=== PATIENT | male | born 1950 | race Caucasian/White ===

== ENCOUNTER 2020-01-19 18:33 | IRF | payer MEDICARE, OTHER, SELFPAY ==
--- NOTE | ~2020-01-19 | XR_ITS ---
XR chest 1V portable DATE: 01/19/2020 20:03 INDICATION: New admission with intravenous medications TECHNIQUE: Portable AP chest on 01/19/2020 2002 hours COMPARISON: None FINDINGS: Right upper extremity PIC catheter tip overlies the upper right atrium. Heart size is within normal limits. Status post sternotomy and cardiac valve replacement. There is mild elevation of the right diaphragm. No pulmonary infiltrate or consolidation, pulmonary vascular congestion or pleural effusion or pneumothorax. There is gaseous distention of bowel in the upper abdomen. IMPRESSION: No active cardiopulmonary disease Reviewed, dictated and finalized at location A. [facility] [facility]
[2020-01-19 18:25] VITALS: BP 129/65; PULSE 70; RESP 18; TEMP 36.1; O2SAT 98; BMI 29.9
--- NOTE | 2020-01-19 18:32 | ADMGEN ---
This patient, Abraham Gonzalez, was admitted to [facility] Room 230-02. Patient/family oriented to hospital policies and general routines including ID bracelet, bed and alarms, visiting hours, pain management, procedures, bathroom and other care routines, personal items, smoking policy, room service/diet, and visiting hours. Information on how to activate the Rapid Response Team has been discussed. Patient/Family are encouraged to report perceived risks to care and to ask questions if they do not understand what they are told or what they should do.
[2020-01-19 21:13] VITALS: BP 127/58; PULSE 73; RESP 18; TEMP 36.5; O2SAT 99
[2020-01-19] MEDS: DOXYCYCLINE HYCLATE 100 MG TABLET PO (22:11)
[2020-01-19] MEDS: ATORVASTATIN 40 MG TABLET 80 MG PO (22:12)
[2020-01-19] MEDS: MELATONIN 3 MG TABLET 6 MG PO (22:12)
[2020-01-19] MEDS: APIXABAN 5 MG TABLET PO (22:12)
[2020-01-19 22:13] VITALS: PULSE 74
[2020-01-19] MEDS: carvediloL 3.125 MG TABLET PO (22:13)
[2020-01-19] MEDS: hydrALAZINE HCL 50 MG TABLET PO (22:15)
[2020-01-19] MEDS: PANTOPRAZOLE 40 MG TABLET PO (22:18)
[2020-01-19] MEDS: MICONAZOLE NITRATE 2% CREAM 30 GM TUBE 1 APPLIC TOPICAL (22:19)
[2020-01-20] VITALS (7 sets, daily range): BP systolic 106–116; BP diastolic 56–62; PULSE 70–78; RESP 18–20; TEMP 36.3–37.1; O2SAT 98–100
[2020-01-20] MEDS: CENTRAL LINE FLUSH 10 ML IV PUSH ×4 (05:48→20:53)
[2020-01-20] MEDS: MICONAZOLE NITRATE 2% CREAM 30 GM TUBE 1 APPLIC TOPICAL ×4 (05:48→20:53)
[2020-01-20 06:45] LABS: Basophils Absolute Auto 0.1 K/mm3 (0.0-0.1); Eosinophils Absolute Auto 0.6 K/mm3 (0-0.3); Eosinophils Percent Auto 6.3 % (0-4.4); Hematocrit 24.2 % (42.0-52.0); Hemoglobin 7.7 g/dL (14.0-18.0); Immature Granulocyte Absolute 0.05 K/mm3 (0.00-0.031); Immature Granulocyte Percent A 0.5 % (0-0.5); Lymphocytes Absolute Auto 1.51 K/mm3 (0.9-3.2); Mean Corpuscular HGB Conc 31.8 g/dl (32-36); Mean Corpuscular Hemoglobin 27.6 pg (26-34); Mean Corpuscular Volume 86.7 fl (80-100); Mean Platelet Volume 12.2 fl (7.4-10.4); Monocytes Absolute Auto 0.8 K/mm3 (0.1-0.6); Monocytes Percent Auto 8.4 % (2.6-8.5); Neutrophils Absolute Auto 6.4 K/mm3 (1.3-6.7); Neutrophils Percent Auto 67.8 % (45.5-73.1); Platelet Count Result 143 k/mm3 (150-375); Red Blood Count 2.79 M/mm3 (4.6-6.20); Red Cell Distribution Width 15.5 % (11.5-14.5); White Blood Count 9.4 K/mm3 (4.5-10.0)
[2020-01-20 06:57] LABS: Anion Gap 4 mmol/L (8-16); Blood Urea Nitrogen 12 mg/dL (9-20); Calcium 8.2 mg/dL (8.4-10.2); Carbon Dioxide 28 mmol/L (22-30); Chloride 109 mmol/L (98-107); Estimated CRCL calculation 56 ml/min; Estimated Glomerular Filt Rate 60; Glucose 97 mg/dL (75-110); Potassium 3.2 mmol/L (3.4-5.0); Sodium 141 mmol/L (137-145)
[2020-01-20] MEDS: AMIODARONE HCL 200 MG TABLET 400 MG BY MOUTH (10:42)
[2020-01-20] MEDS: allopurinoL 100 MG TABLET PO (10:42)
[2020-01-20] MEDS: DOXYCYCLINE HYCLATE 100 MG TABLET PO ×2 (10:43→20:53)
[2020-01-20] MEDS: ASPIRIN 81 MG CHEWABLE TABLET PO (10:43)
[2020-01-20] MEDS: carvediloL 3.125 MG TABLET PO ×2 (10:43→20:52)
[2020-01-20] MEDS: APIXABAN 5 MG TABLET PO ×2 (10:43→17:50)
[2020-01-20] MEDS: POTASSIUM CHLORIDE 20 MEQ TABLET.ER PO (10:43)
[2020-01-20] MEDS: MULTIVITAMINS THERAPEUTIC TAB (*BKC) 1 TABLET PO (10:44)
--- NOTE | 2020-01-20 12:31 | WPDREHABHP ---
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 The patient is a 69 years old right-handed male with past medical history of bioprosthetic aortic valve, thoracic aortic aneurysm repair, atrial fibrillation, and hypertension presented to [facility] with a 3 week history of shortness of breath on exertion despite home diuretics. He developed acute kidney injury and his repeat echocardiogram both transthoracic and transesophageal were notable for new onset aortic insufficiency with vegetation on his bioprosthetic valve, indicated above endocarditis. The patient underwent a NICOLAS and remained intubated following the procedure. He was transferred to [facility] for further evaluation and management. Cardiothoracic surgery was consulted and the patient underwent a TAVR with DCCV on December 11, 2019. Infectious Disease was consulted and recommended 6 weeks of antibiotic therapy. Extubation was attempted on December 18, 2019 but the patient had to be reintubated on December 19, 2019 for respiratory distress in the setting of epistaxis. He underwent tracheostomy placement on December 24, 2019. During the hospitalization there was a concern for pulmonic valve vegetation as well. He continued on vancomycin, ceftriaxone, and doxycycline until January 13, 2020. He will require chronic suppressive therapy with doxycycline 100 mg p.o. b.i.d. indefinitely. Repeat NICOLAS on December 18, 2019 showed no vegetations on the pulmonic valve. A PEG was placed for nutrition on December 24, 2019. His hospitalization was complicated by atrial fibrillation for which he was started on amiodarone. Given his need for anticoagulation he was placed on aspirin and Eliquis. Patient was transferred to [facility] on December 29, 2019 for further care. Pulmonology was consulted and began tracheostomy weaning, patient was since been decannulated he is currently on 2L per nasal cannula. Cardiology was consulted and the patient was maintained on beta blockers and Eliquis. General surgery was consulted for G-tube removal as patient's diet has been advanced to a regular consistency diet. G-tube was removed on January 05, 2020. He developed left ankle and right foot pain that was determined to be acute gout flare for which he was treated with colchicine. He will remain on Eliquis and aspirin for DVT prophylaxis COVID: the patient has not traveled outside the [place] or had contact with someone who is ill that has traveled outside the [place] in the past 21 days. The patient has not traveled to an area of the [place] that is experiencing known transmission of the Coronavirus and has not had close personal contact with anyone that has. The patient does not have a fever. The patient is not experiencing lower respiratory illness symptoms. Therapy was initiated at the acute care facility and the patient transferred to us from [facility] on January 19, 2020 FALLS OR SURGERIES: the patient has had major surgery in the last 100 days. The patient has had no falls in the past year. The patient has had no falls with the injury in the past year PAST MEDICAL HISTORY: atrial fibrillation, bypass static aortic valve, hypertension, hyperlipidemia, gout, osteoarthritis, and coronary artery disease. PAST SURGICAL HISTORY: By prosthetic aortic valve, thoracic aortic aneurysm repair, TAVR, tracheostomy, G-tube insertion, cholecystectomy, partial hip arthroplasty, and vasectomy. SOCIAL HISTORY: The patient lives with his and daughter in a 1 level home with 1 step to enter. Patient was completely independent previously wit
[2020-01-20] MEDS: hydrALAZINE HCL 50 MG TABLET PO ×2 (15:30→20:53)
[2020-01-20] MEDS: ATORVASTATIN 40 MG TABLET 80 MG PO (20:52)
[2020-01-20] MEDS: PANTOPRAZOLE 40 MG TABLET PO (20:53)
[2020-01-20] MEDS: MELATONIN 3 MG TABLET 6 MG PO (20:53)
[2020-01-21] VITALS (7 sets, daily range): BP systolic 106–119; BP diastolic 54–65; PULSE 71–77; RESP 13–20; TEMP 36.9–37.1; O2SAT 95–99
[2020-01-21] MEDS: hydrALAZINE HCL 50 MG TABLET PO ×3 (05:41→20:39)
[2020-01-21] MEDS: allopurinoL 100 MG TABLET PO (09:12)
[2020-01-21] MEDS: AMIODARONE HCL 200 MG TABLET 400 MG BY MOUTH (09:12)
[2020-01-21] MEDS: carvediloL 3.125 MG TABLET PO ×2 (09:13→20:39)
[2020-01-21] MEDS: ASPIRIN 81 MG CHEWABLE TABLET PO (09:13)
[2020-01-21] MEDS: POTASSIUM CHLORIDE 20 MEQ TABLET.ER PO (09:13)
[2020-01-21] MEDS: DOXYCYCLINE HYCLATE 100 MG TABLET PO ×2 (09:13→20:39)
[2020-01-21] MEDS: MULTIVITAMINS THERAPEUTIC TAB (*BKC) 1 TABLET PO (09:14)
[2020-01-21] MEDS: APIXABAN 5 MG TABLET PO ×2 (09:14→17:47)
--- NOTE | 2020-01-21 12:06 | WPDNEURORHBP ---
Subjective Date/time seen: 01/21/20 12:06 69 years old with critical illness myopathy and multiple comorbid condition as outlined before has no specific complaints except that he feels hot at times at night it was cold Review of Systems Review of Systems: All systems reviewed & are unremarkable except as noted in HPI and below Functional Status Ambulation Ability Ability to Ambulate 10 Feet: Minimum Assistance X 1 Ambulation Assistive Devices: Walker, Wheeled Transfers Ability Ability to Transfer In/Out of Chair: Minimum Assistance X 1 Exam Narrative: Exam Narrative: remains awake alert cooperative in no obvious acute distress heart regular with murmur lungs clear no crepitation abdomen is soft no organomegaly neuro examination unchanged Objective Data Vital Signs Vital Signs: Vital Signs - 24 hr 01/20/20 14:00 01/20/20 20:00 01/20/20 20:52 Temperature 36.6 C Pulse Rate 75 78 78 Respiratory Rate 20 18 Blood Pressure 115/62 Pulse Oximetry 100 100 01/20/20 21:20 01/21/20 06:00 01/21/20 09:12 Temperature 37.1 C 36.9 C Pulse Rate 78 72 72 Respiratory Rate 18 18 Blood Pressure 116/60 117/65 Pulse Oximetry 100 99 01/21/20 09:13 Temperature Pulse Rate 72 Respiratory Rate Blood Pressure Pulse Oximetry Intake/Output Intake/Output: Intake & Output 01/18/20 01/19/20 01/20/20 01/21/20 23:59 23:59 23:59 23:59 Intake Total 720 Balance 720 Meds/Results Medications: Active Medications Generic Name Dose Route Start Last Admin Trade Name Freq PRN Reason Stop Dose Admin Acetaminophen 650 mg 01/19/20 19:42 Acetaminophen 325 Mg Tablet PO Q4H PRN Pain (Scale Score 1-3) Allopurinol 100 mg 01/20/20 08:00 01/21/20 09:12 Allopurinol 100 Mg Tablet PO 100 mg DAILY@0800 [facility] Administration Alteplase, Recombinant 2 mg 01/20/20 06:35 Alteplase 2 Mg Vial (Cathflo) IV PUSH ONCE PRN Line Occlusion Amiodarone HCl 400 mg 01/20/20 08:00 01/21/20 09:12 Amiodarone Hcl 200 Mg Tablet BY MOUTH 400 mg DAILY@0800 [facility] Administration Apixaban 5 mg 01/19/20 21:20 01/21/20 09:14 Apixaban 5 Mg Tablet PO 5 mg BID NAE Administration Aspirin 81 mg 01/20/20 08:00 01/21/20 09:13 Aspirin 81 Mg Chewable Tablet PO 81 mg DAILY@0800 NAE Administration Atorvastatin Calcium 80 mg 01/19/20 21:20 01/20/20 20:52 Atorvastatin 40 Mg Tablet PO 80 mg HS NAE Administration Calcium Carbonate 200 mg 01/19/20 19:42 Calcium Carbonate (Tums) 500 Mg (200 Mg Elemental) PO QID PRN Indigestion Carvedilol 3.125 mg 01/19/20 21:25 01/21/20 09:13 Carvedilol 3.125 Mg Tablet PO 3.125 mg Q12HR NAE Administration Doxycycline Hyclate 100 mg 01/19/20 21:25 01/21/20 09:13 Doxycycline Hyclate 100 Mg Tablet PO 100 mg Q12HR NAE Administration Hydralazine HCl 50 mg 01/19/20 22:00 01/21/20 05:41 Hydralazine Hcl 50 Mg Tablet PO 50 mg Q8HR NAE Administration Ceftriaxone Sodium 2 gm in 100 mls @ 200 mls/hr 01/21/20 13:00 Rocephin 2 Gm/D5w 100 Ml IVPB 01/21/20 13:29 ONCE ONE Loperamide HCl 2 mg 01/19/20 19:42 Loperamide Hcl 2 Mg Capsule PO Q4H PRN Diarrhea Melatonin 6 mg 01/19/20 21:25 01/20/20 20:53 Melatonin 3 Mg Tablet PO 6 mg HS NAE Administration Miconazole Nitrate 1 applic 01/19/20 22:00 01/20/20 20:53 Miconazole Nitrate 2% Cream 30 Gm Tube TOPICAL 1 applic Q8HR NAE Administration Multivitamins Therapeutic 1 tablet 01/20/20 09:00 01/21/20 09:14 Multivitamins Therapeutic Tab (*Bkc) PO 1 tablet DAILY [facility] Administration Ondansetron HCl 4 mg 01/19/20 19:42 Ondansetron Inj 4 Mg/2 Ml Vial IV PUSH Q6H PRN Nausea And Vomiting Oxycodone HCl 5 mg 01/19/20 19:42 Oxycodone Hcl (*Crx) 5 Mg Tab Ir PO Q4H PRN Pain (Scale Score 4-6) Pantoprazole Sodium 40 mg 01/19/20 21:25 01/20/20 20:53 Pantoprazole 40 Mg Tablet PO
[2020-01-21] MEDS: MICONAZOLE NITRATE 2% CREAM 30 GM TUBE 1 APPLIC TOPICAL ×2 (14:17→20:40)
[2020-01-21] MEDS: CENTRAL LINE FLUSH 10 ML IV PUSH ×3 (14:17→20:40)
--- NOTE | 2020-01-21 16:05 | PC.NURSE ---
Spoke with daughter this AM she is very concerned about final doses of ABT that patient was supposed to receive when admitted here. Rocephin and Vancomycin were entered in as ordered but then d/c'd, I spoke with Dr. Victoria, he ordered one dose of rocephin and 2 doses of vancomycin to finish ABT, Purple lumen on Picc is unable to flush, Red lumen flushes slowly. Patient received rocephin and one dose of vancomycin this shift, tolerated well.
[2020-01-21] MEDS: ATORVASTATIN 40 MG TABLET 80 MG PO (20:38)
[2020-01-21] MEDS: PANTOPRAZOLE 40 MG TABLET PO (20:39)
[2020-01-21] MEDS: MELATONIN 3 MG TABLET 6 MG PO (20:39)
[2020-01-22] VITALS (9 sets, daily range): BP systolic 115–137; BP diastolic 55–65; PULSE 78–89; RESP 18–22; TEMP 36.8–37.3; O2SAT 92–100; BMI 29.9
[2020-01-22] MEDS: ACETAMINOPHEN 325 MG TABLET 650 MG PO (05:36)
[2020-01-22] MEDS: hydrALAZINE HCL 50 MG TABLET PO ×3 (05:38→21:25)
[2020-01-22] MEDS: MICONAZOLE NITRATE 2% CREAM 30 GM TUBE 1 APPLIC TOPICAL ×2 (05:47→21:27)
[2020-01-22] MEDS: CENTRAL LINE FLUSH 10 ML IV PUSH (05:47)
[2020-01-22] MEDS: POTASSIUM CHLORIDE 20 MEQ TABLET.ER PO (08:28)
[2020-01-22] MEDS: AMIODARONE HCL 200 MG TABLET 400 MG BY MOUTH (08:28)
[2020-01-22] MEDS: allopurinoL 100 MG TABLET PO (08:28)
[2020-01-22] MEDS: APIXABAN 5 MG TABLET PO ×2 (08:29→17:26)
[2020-01-22] MEDS: DOXYCYCLINE HYCLATE 100 MG TABLET PO ×2 (08:29→21:25)
[2020-01-22] MEDS: ASPIRIN 81 MG CHEWABLE TABLET PO (08:29)
[2020-01-22] MEDS: MULTIVITAMINS THERAPEUTIC TAB (*BKC) 1 TABLET PO (08:29)
[2020-01-22] MEDS: carvediloL 3.125 MG TABLET PO ×2 (08:29→21:26)
--- NOTE | 2020-01-22 11:22 | WPDNEURORHBP ---
Subjective Date/time seen: 01/22/20 11:22 69 years old with critical illness related myopathy and multiple comorbid conditions has been involving the physical therapy and occupational therapy has also received the IV antibiotics and last dose has been given Review of Systems Review of Systems: All systems reviewed & are unremarkable except as noted in HPI and below Functional Status Ambulation Ability Ability to Ambulate 10 Feet: Minimum Assistance X 1 Ambulation Assistive Devices: Walker, Wheeled Transfers Ability Ability to Transfer In/Out of Chair: Minimum Assistance X 1 Exam Narrative: Exam Narrative: remains awake alert with normal speech not dysphasic not dysarthric heart regular lungs clear neuro unchanged Cornelio understanding and cooperative in the physical therapy Objective Data Vital Signs Vital Signs: Vital Signs - 24 hr 01/21/20 14:00 01/21/20 20:29 01/21/20 20:39 Temperature 36.9 C 37.1 C Pulse Rate 77 71 76 Respiratory Rate 20 18 Blood Pressure 119/63 106/54 L Pulse Oximetry 98 98 01/21/20 23:22 01/22/20 00:11 01/22/20 03:36 Temperature Pulse Rate 74 Respiratory Rate 13 Blood Pressure Pulse Oximetry 95 92 98 01/22/20 05:43 01/22/20 08:28 01/22/20 08:29 Temperature 37.0 C Pulse Rate 89 78 78 Respiratory Rate 22 H Blood Pressure 137/62 Pulse Oximetry 97 Intake/Output Intake/Output: Intake & Output 01/19/20 01/20/20 01/21/20 01/22/20 23:59 23:59 23:59 23:59 Intake Total 720 830 620 Balance 720 830 620 Meds/Results Medications: Active Medications Generic Name Dose Route Start Last Admin Trade Name Freq PRN Reason Stop Dose Admin Acetaminophen 650 mg 01/19/20 19:42 01/22/20 05:36 Acetaminophen 325 Mg Tablet PO 650 mg Q4H PRN Administration Pain (Scale Score 1-3) Allopurinol 100 mg 01/20/20 08:00 01/22/20 08:28 Allopurinol 100 Mg Tablet PO 100 mg DAILY@0800 NAE Administration Alteplase, Recombinant 2 mg 01/20/20 06:35 Alteplase 2 Mg Vial (Cathflo) IV PUSH ONCE PRN Line Occlusion Amiodarone HCl 400 mg 01/20/20 08:00 01/22/20 08:28 Amiodarone Hcl 200 Mg Tablet BY MOUTH 400 mg DAILY@0800 [facility] Administration Apixaban 5 mg 01/19/20 21:20 01/22/20 08:29 Apixaban 5 Mg Tablet PO 5 mg BID [facility] Administration Aspirin 81 mg 01/20/20 08:00 01/22/20 08:29 Aspirin 81 Mg Chewable Tablet PO 81 mg DAILY@0800 [facility] Administration Atorvastatin Calcium 80 mg 01/19/20 21:20 01/21/20 20:38 Atorvastatin 40 Mg Tablet PO 80 mg HS [facility] Administration Calcium Carbonate 200 mg 01/19/20 19:42 Calcium Carbonate (Tums) 500 Mg (200 Mg Elemental) PO QID PRN Indigestion Carvedilol 3.125 mg 01/19/20 21:25 01/22/20 08:29 Carvedilol 3.125 Mg Tablet PO 3.125 mg Q12HR [facility] Administration Doxycycline Hyclate 100 mg 01/19/20 21:25 01/22/20 08:29 Doxycycline Hyclate 100 Mg Tablet PO 100 mg Q12HR [facility] Administration Hydralazine HCl 50 mg 01/19/20 22:00 01/22/20 05:38 Hydralazine Hcl 50 Mg Tablet PO 50 mg Q8HR [facility] Administration Loperamide HCl 2 mg 01/19/20 19:42 Loperamide Hcl 2 Mg Capsule PO Q4H PRN Diarrhea Melatonin 6 mg 01/19/20 21:25 01/21/20 20:39 Melatonin 3 Mg Tablet PO 6 mg HS [facility] Administration Miconazole Nitrate 1 applic 01/19/20 22:00 01/22/20 05:47 Miconazole Nitrate 2% Cream 30 Gm Tube TOPICAL 1 applic Q8HR [facility] Administration Multivitamins Therapeutic 1 tablet 01/20/20 09:00 01/22/20 08:29 Multivitamins Therapeutic Tab (*Bkc) PO 1 tablet DAILY [facility] Administration Ondansetron HCl 4 mg 01/19/20 19:42 Ondansetron Inj 4 Mg/2 Ml Vial IV PUSH Q6H PRN Nausea And Vomiting Oxycodone HCl 5 mg 01/19/20 19:42 Oxycodone Hcl (*Crx) 5 Mg Tab Ir PO Q4H PRN Pain (Scale Score 4-6) Pantoprazole Sodium 40 mg 01/19/20 21:01/21/20 20:39 Pantoprazole 40 Mg Tablet PO 4
--- NOTE | 2020-01-22 12:22 | RPD ---
INDIVIDUALIZED PLAN OF CARE FOR Abraham Gonzalez Brief Synthesis of Pre-Admission Screen, Post-Admission Evaluation and Therapy Evaluations: The patient presents to rehab with critical illness myopathy. Comorbidities include endocarditis, atrial fibrillation, hypertension, acute hypoxic respiratory failure, tracheostomy placement, decannulation, PEG tube placement, severe aortic insufficiency, pulmonic valve vegetation, fever, diarrhea, constipation, gout, insomnia hyperlipidemia, leukocytosis, and acute systolic congestive heart failure. The complexity of the patient's medical management, nursing, and therapy needs require an inpatient rehab hospital stay with a physician-led interdisciplinary team approach. The patient?s needs will be best met in an intensive program vs. at a lower level of care. The patient requires physician services for medical oversight, management of post-op complications (acute kidney injury, endocarditis, leukocytosis, respiratory failure) in setting of present comorbidities, and pain management. The patient requires nursing services for anticoagulation therapy, DVT prophylactics, infection protection, medication management and education, pressure relief, and wound care. Deficits include:ADLs, Balance, Endurance, Family Training/Education, Mobility, Pain Management, ROM, Safety, Strength, and Transfers Parts Delivery Driver/Case Management for: Discharge Planning and Patient/Family Counseling Physical Therapy: 5 days per week for 90 minutes. Treatments may include: Therapeutic Exercise, Gait Training, Neuromuscular Re-education, Transfer Training, Community Reintegration, Bed Mobility, Patient/Family Education, Wheelchair Mobility Group Therapy/Concurrent Therapy Rationales: -Improve attention span during functional activities in a distracted environment. -Enhance problem solving and/or adequate judgment skills during functional activities in a distracted environment. -Promote increased safety awareness in a distracted environment to reduce fall risk with functional tasks, transfers, and ambulation to allow a more safe, self-sufficient return to the home environment. -Improve dynamic balance skills to promote safety and independence with functional activities in a distracted environment for maximum gain. Occupational Therapy: 5 days per week for 90 minutes. Treatments may include: Therapeutic Exercise, Therapeutic Activity, Cognitive Training, Self-Care Transfer Training, Community Reintegration, Home Management, Patient/Family Education, Wheelchair Mobility Training, Energy Conservation Training Group Therapy/Concurrent Therapy Rationales: -Allow therapist to observe and teach generalization and carry-over of skills learned in individual therapy. -Enhance problem solving and sequencing skills during therapeutic activities in a distracted environment. -Promote increased safety awareness in a realistic setting to reduce fall risk with functional tasks due to visual and verbal distractions. -Increase functional level with ADLs, ADL transfers and use of adaptive equipment through therapeutic activities with others while promoting safety to allow a more safe, self-sufficient return home. Medical Prognosis: Good Anticipated Length of Stay: 10 days Rehab Goals: Eating Goal: 06-Independent Oral Hygiene Goal: 06-Independent Toileting Hygiene Goal: 06-Independent Shower/Bathe Self Goal: 06-Independent Upper Body Dressing Goal: 06-Independent Lower Body Dressing Goal: 06-Independent Putting On/Taking Off Footwear Goal: 06-Independent Rolling Left and Right Goal: 06-Independent Sit to Lying Goal: 06-Independent Lying to Sitting on Side of Bed Goal: 06-Independent Sit to Stand Goal: 06-Independent Chair/[id number] Transfer Goal: 06-Independent Toilet Transfer Goal: 06-Independent Car Transfer Goal: 06-Independent Walk 10' Goal: 06-Independent Walk 50' with Two Turns Goal: 06-Independent Walk 150' Goal: 06-Independent Walk 10' on Uneven Surfac
[2020-01-22] MEDS: MELATONIN 3 MG TABLET 6 MG PO (21:25)
[2020-01-22] MEDS: ATORVASTATIN 40 MG TABLET 80 MG PO (21:25)
[2020-01-22] MEDS: PANTOPRAZOLE 40 MG TABLET PO (21:26)
[2020-01-23 05:37] VITALS: BP 114/59; PULSE 71; RESP 20; TEMP 37.2; O2SAT 100
[2020-01-23] MEDS: hydrALAZINE HCL 50 MG TABLET PO ×3 (06:13→21:30)
[2020-01-23] MEDS: MICONAZOLE NITRATE 2% CREAM 30 GM TUBE 1 APPLIC TOPICAL ×3 (06:14→21:31)
[2020-01-23 08:00] VITALS: PULSE 77; RESP 18; O2SAT 98
[2020-01-23 09:14] VITALS: PULSE 100
[2020-01-23] MEDS: allopurinoL 100 MG TABLET PO (09:14)
[2020-01-23] MEDS: POTASSIUM CHLORIDE 20 MEQ TABLET.ER PO (09:14)
[2020-01-23] MEDS: AMIODARONE HCL 200 MG TABLET 400 MG BY MOUTH (09:14)
[2020-01-23] MEDS: ASPIRIN 81 MG CHEWABLE TABLET PO (09:15)
[2020-01-23] MEDS: MULTIVITAMINS THERAPEUTIC TAB (*BKC) 1 TABLET PO (09:15)
[2020-01-23] MEDS: APIXABAN 5 MG TABLET PO ×2 (09:15→17:57)
[2020-01-23] MEDS: carvediloL 3.125 MG TABLET PO ×2 (09:15→21:30)
[2020-01-23] MEDS: DOXYCYCLINE HYCLATE 100 MG TABLET PO ×2 (09:15→21:30)
--- NOTE | 2020-01-23 11:17 | WPDNEURORHBP ---
Subjective Date/time seen: 01/23/20 11:17 69 years old with critical illness related myopathy in addition to the history of by prosthetic aortic valve, thoracic aortic aneurysmal repair, atrial fibrillation, hypertension, history of tracheostomy, and concern about the pulmonic wall vegetation, for which he received triple antibiotics up until day before yesterday and has been receiving doxycycline 100 mg p.o. b.i.d. indefinitely along with continuation of aspirin and Eliquis. At present he is on regular diet he has noted his right-sided tremors are increasing more and more door there is no family history in his parents or siblings and he has not been treated for those tremors Review of Systems Review of Systems: All systems reviewed & are unremarkable except as noted in HPI and below Functional Status Ambulation Ability Ability to Ambulate 10 Feet: Contact Guard Ability to Ambulate 50 Feet With 2 Turns: Contact Guard Ability to Ambulate 150 Feet: Contact Guard Ambulation Assistive Devices: Walker, Wheeled Transfers Ability Ability to Transfer In/Out of Chair: Minimum Assistance X 1 Exam Narrative: Exam Narrative: on examination he is awake alert cooperative his speech nor dysphasic no dysarthric not dysphonic neck is supple with full range of motions no cervical bruits heart is regular lungs without crepitations abdomen is soft neurologically he has normal mental status normal speech has significant ataxia and dysmetria and tremors bilaterally . Objective Data Vital Signs Vital Signs: Vital Signs - 24 hr 01/22/20 14:00 01/22/20 20:55 01/22/20 21:26 Temperature 36.8 C Pulse Rate 80 79 80 Respiratory Rate 18 20 Blood Pressure 118/55 L Pulse Oximetry 98 100 01/22/20 22:00 01/23/20 05:37 01/23/20 09:14 Temperature 37.3 C 37.2 C Pulse Rate 79 71 100 Respiratory Rate 20 20 Blood Pressure 115/65 114/59 L Pulse Oximetry 100 100 Intake/Output Intake/Output: Intake & Output 01/20/20 01/21/20 01/22/20 01/23/20 23:59 23:59 23:59 23:59 Intake Total 901 565 3204 360 Balance 949 847 4970 360 Meds/Results Medications: Active Medications Generic Name Dose Route Start Last Admin Trade Name Freq PRN Reason Stop Dose Admin Acetaminophen 650 mg 01/19/20 19:42 01/22/20 05:36 Acetaminophen 325 Mg Tablet PO 650 mg Q4H PRN Administration Pain (Scale Score 1-3) Allopurinol 100 mg 01/20/20 08:00 01/23/20 09:14 Allopurinol 100 Mg Tablet PO 100 mg DAILY@0800 NAE Administration Amiodarone HCl 400 mg 01/20/20 08:00 01/23/20 09:14 Amiodarone Hcl 200 Mg Tablet BY MOUTH 400 mg DAILY@0800 NAE Administration Apixaban 5 mg 01/19/20 21:20 01/22/20 17:26 Apixaban 5 Mg Tablet PO 5 mg BID NAE Administration Aspirin 81 mg 01/20/20 08:00 01/23/20 09:15 Aspirin 81 Mg Chewable Tablet PO 81 mg DAILY@0800 NAE Administration Atorvastatin Calcium 80 mg 01/19/20 21:20 01/22/20 21:25 Atorvastatin 40 Mg Tablet PO 80 mg HS NAE Administration Calcium Carbonate 200 mg 01/19/20 19:42 Calcium Carbonate (Tums) 500 Mg (200 Mg Elemental) PO QID PRN Indigestion Carvedilol 3.125 mg 01/19/20 21:25 01/22/20 21:26 Carvedilol 3.125 Mg Tablet PO 3.125 mg Q12HR NAE Administration Doxycycline Hyclate 100 mg 01/19/20 21:25 01/22/20 21:25 Doxycycline Hyclate 100 Mg Tablet PO 100 mg Q12HR NAE Administration Hydralazine HCl 50 mg 01/19/20 22:00 01/23/20 06:13 Hydralazine Hcl 50 Mg Tablet PO 50 mg Q8HR NAE Administration Loperamide HCl 2 mg 01/19/20 19:42 Loperamide Hcl 2 Mg Capsule PO Q4H PRN Diarrhea Melatonin 6 mg 01/19/20 21:25 01/22/20 21:25 Melatonin 3 Mg Tablet PO 6 mg HS NAE Administration Miconazole Nitrate 1 applic 01/19/20 22:00 01/23/20 06:14 Miconazole Nitrate 2% Cream 30 Gm Tube TOPICAL 1 applic Q8HR NAE Administration Multivitamins Therapeutic 1 tablet 01/20/20 09:00 01/21
[2020-01-23 11:23] LABS: Basophils Percent Auto 0.8 % (0.2-1.2); Eosinophils Percent Auto 4.4 % (0-4.4); Immature Granulocyte Percent A 0.9 % (0-0.5); Lymphocytes Percent Auto 15.1 % (18.3-44.2); Mean Corpuscular Volume 87.4 fl (80-100); Mean Platelet Volume 10.7 fl (7.4-10.4); Monocytes Percent Auto 9.9 % (2.6-8.5); Neutrophils Absolute Auto 7.8 K/mm3 (1.3-6.7); Neutrophils Percent Auto 68.9 % (45.5-73.1); Platelet Count Result 149 k/mm3 (150-375); Red Blood Count 2.86 M/mm3 (4.6-6.20); Red Cell Distribution Width 15.5 % (11.5-14.5); White Blood Count 11.4 K/mm3 (4.5-10.0)
[2020-01-23 11:24] LABS: Basophils Absolute Auto 0.1 K/mm3 (0.0-0.1); Eosinophils Absolute Auto 0.5 K/mm3 (0-0.3); Lymphocytes Absolute Auto 1.71 K/mm3 (0.9-3.2); Monocytes Absolute Auto 1.1 K/mm3 (0.1-0.6)
[2020-01-23 11:32] LABS: Anion Gap 5 mmol/L (8-16); Blood Urea Nitrogen 14 mg/dL (9-20); Calcium 8.3 mg/dL (8.4-10.2); Carbon Dioxide 27 mmol/L (22-30); Chloride 105 mmol/L (98-107); Estimated CRCL calculation 52 ml/min; Estimated Glomerular Filt Rate 54; Glucose 67 mg/dL (75-110); Potassium 3.7 mmol/L (3.4-5.0); Sodium 137 mmol/L (137-145)
[2020-01-23 14:00] VITALS: BP 126/62; PULSE 77; RESP 18; TEMP 36.3; O2SAT 98
[2020-01-23 20:00] VITALS: PULSE 74; RESP 19; O2SAT 98
[2020-01-23] MEDS: ATORVASTATIN 40 MG TABLET 80 MG PO (21:30)
[2020-01-23] MEDS: MELATONIN 3 MG TABLET 6 MG PO (21:30)
[2020-01-23] MEDS: PANTOPRAZOLE 40 MG TABLET PO (21:31)
[2020-01-23 22:00] VITALS: BP 117/63; PULSE 74; RESP 19; TEMP 36.6; O2SAT 98
--- NOTE | 2020-01-24 | ECHO_ITS ---
Patient Info Name: Abraham Gonzalez Age: 69 years : 1950 Gender: Male Ht: 69 in Wt: 202 lbs BSA: 2.14 m2 HR: 72 bpm Heart Rhythm: Indeterminant Technical Quality: Good Exam Date: 01/24/2020 3:41 PM Exam Location: [facility] Patient Status: Inpatient Admit Date: 01/19/2020 Staff Ordering Physician: David Victoria MD Marketing Operations Assistant: Aury Vigil RDCS Attending Provider: David Victoria MD Exam Type: CA echo doppler color flow Study Info Indications - AVR ENDOCARDITIS HX/O TAVR Complete two-dimensional, color flow and Doppler transthoracic echocardiogram is performed. Summary 1. Complete two-dimensional, color flow and Doppler transthoracic echocardiogram is performed. 2. Normal left ventricular size, thickness and function with no segmental wall motion abnormalities. Estimated ejection fraction is 55-60%. Grade 2 diastolic dysfunction is present. Abnormal wall motion secondary to bundle branch block. 3. Thickened mitral valve, with some calcification of the tip of the papillary muscle, and mild mitral regurgitation. 4. Mild tricuspid regurgitation. 5. Upper limit of pulmonary pressure, estimated RVSP 36 mmHg. 6. Severe left atrial enlargement. 7. Normal appearing TAVR bioprosthesis. Peak aortic valve velocity of 2.6 m/sec, peak gradient 27 mmHg, mean gradient 14 mmHg and JANA 1.6 cm2. No aortic insufficiency. Left Ventricle Left ventricular systolic function is normal, estimated at 55-60%. Left ventricular septal wall motion is abnormal with septal motion related to bundle branch block. The left ventricular diastolic function is grade II diastolic dysfunction. Left Atria Left atrial chamber dimension is severely enlarged. Aortic Valve There is no TAVR aortic valve stenosis. There is no regurgitation of the TAVR aortic valve. Mitral Valve The mitral valve has thickened leaflets. There is mild mitral valve regurgitation. Tricuspid Valve There is mild tricuspid valve regurgitation. There is no tricuspid valve calcification. Left Ventricular Outflow Tract Name Value Normal LVOT 2D LVOT Diameter 2.0 cm LVOT Doppler LVOT Peak Gradient 7 mmHg LVOT Mean Gradient 4 mmHg LVOT VTI 25 cm LVOT VTI/AV VTI Ratio 0.5 LVOT Stroke Volume 81 ml LVOT CO 18.1 l/min LVOT CI 8.5 l/min/m2 Pulmonic Valve Name Value Normal PV Doppler PV Peak Gradient 5 mmHg Mitral Valve Name Value Normal MV Doppler MV Dec
[2020-01-24 06:00] VITALS: BP 118/51; PULSE 73; RESP 19; TEMP 36.2; O2SAT 100
[2020-01-24] MEDS: MICONAZOLE NITRATE 2% CREAM 30 GM TUBE 1 APPLIC TOPICAL ×3 (06:01→21:09)
[2020-01-24] MEDS: hydrALAZINE HCL 50 MG TABLET PO ×3 (06:01→21:03)
[2020-01-24] MEDS: ASPIRIN 81 MG CHEWABLE TABLET PO (09:02)
[2020-01-24] MEDS: POTASSIUM CHLORIDE 20 MEQ TABLET.ER PO (09:02)
[2020-01-24 09:03] VITALS: PULSE 73
[2020-01-24] MEDS: DOXYCYCLINE HYCLATE 100 MG TABLET PO ×2 (09:03→21:04)
[2020-01-24] MEDS: allopurinoL 100 MG TABLET PO (09:03)
[2020-01-24] MEDS: AMIODARONE HCL 200 MG TABLET 400 MG BY MOUTH (09:03)
[2020-01-24] MEDS: MULTIVITAMINS THERAPEUTIC TAB (*BKC) 1 TABLET PO (09:03)
[2020-01-24] MEDS: APIXABAN 5 MG TABLET PO ×2 (09:03→17:02)
[2020-01-24] MEDS: carvediloL 3.125 MG TABLET PO ×2 (09:03→21:04)
[2020-01-24 14:00] VITALS: BP 120/60; PULSE 73; RESP 20; TEMP 36.7; O2SAT 99
[2020-01-24 20:00] VITALS: PULSE 73; RESP 20; O2SAT 96
[2020-01-24] MEDS: MELATONIN 3 MG TABLET 6 MG PO (21:03)
[2020-01-24] MEDS: PANTOPRAZOLE 40 MG TABLET PO (21:03)
[2020-01-24 21:04] VITALS: PULSE 72
[2020-01-24] MEDS: ATORVASTATIN 40 MG TABLET 80 MG PO (21:04)
[2020-01-24 22:00] VITALS: BP 156/69; PULSE 73; RESP 20; TEMP 36.7; O2SAT 96
[2020-01-25] VITALS (7 sets, daily range): BP systolic 119–144; BP diastolic 51–74; PULSE 73–88; RESP 16–20; TEMP 36.4–36.8; O2SAT 97–100
[2020-01-25] MEDS: MICONAZOLE NITRATE 2% CREAM 30 GM TUBE 1 APPLIC TOPICAL ×2 (05:12→14:30)
[2020-01-25] MEDS: hydrALAZINE HCL 50 MG TABLET PO ×3 (05:12→20:14)
[2020-01-25] MEDS: allopurinoL 100 MG TABLET PO (09:32)
[2020-01-25] MEDS: AMIODARONE HCL 200 MG TABLET 400 MG BY MOUTH (09:33)
[2020-01-25] MEDS: ASPIRIN 81 MG CHEWABLE TABLET PO (09:34)
[2020-01-25] MEDS: POTASSIUM CHLORIDE 20 MEQ TABLET.ER PO (09:34)
[2020-01-25] MEDS: DOXYCYCLINE HYCLATE 100 MG TABLET PO ×2 (09:35→20:14)
[2020-01-25] MEDS: APIXABAN 5 MG TABLET PO ×2 (09:35→17:42)
[2020-01-25] MEDS: carvediloL 3.125 MG TABLET PO ×2 (09:35→20:12)
[2020-01-25] MEDS: MULTIVITAMINS THERAPEUTIC TAB (*BKC) 1 TABLET PO (09:35)
[2020-01-25] MEDS: NEOMYCIN/POLYMYXIN/BACITRACIN OINTMENT 15 GM TUBE 1 APPLIC TOPICAL (11:00)
--- NOTE | 2020-01-25 11:54 | WPDNEURORHBP ---
Subjective Date/time seen: 01/25/20 11:54 69 years old with critical illness related myopathy in addition to history of prosthetic aortic valve ,thoracic aortic aneurysmal repair, atrial fibrillation ,hypertension, tracheostomy and pulmonic wall vegetation, has been involved in the physical therapy and occupational therapy. he has finished the antibiotic course ,to have a repeat echocardiogram which was done yesterday here Review of Systems Review of Systems: All systems reviewed & are unremarkable except as noted in HPI and below Functional Status Ambulation Ability Ability to Ambulate 10 Feet: Standby Assistance Ability to Ambulate 50 Feet With 2 Turns: Standby Assistance Ability to Ambulate 150 Feet: Contact Guard Ambulation Assistive Devices: Walker, Wheeled Transfers Ability Ability to Transfer In/Out of Chair: Minimum Assistance X 1 Exam Narrative: Exam Narrative: on examination he is awake alert cooperative, with speech not, dysphasic not dysarthric not dysphonic, heart irregular, lungs clear ,abdomen is soft, neurological examination is unchanged. he has action tremors particularly on the right side, he was started on the primidone yesterday, it is too early to see any response but is definitely being treated Objective Data Vital Signs Vital Signs: Vital Signs - 24 hr 01/24/20 14:00 01/24/20 20:00 01/24/20 21:04 Temperature 36.7 C Pulse Rate 73 73 72 Respiratory Rate 20 20 Blood Pressure 120/60 Pulse Oximetry 99 96 01/24/20 22:00 01/25/20 06:00 01/25/20 09:33 Temperature 36.7 C 36.4 C L Pulse Rate 73 88 88 Respiratory Rate 20 18 Blood Pressure 156/69 H 144/74 H Pulse Oximetry 96 98 01/25/20 09:35 Temperature Pulse Rate 88 Respiratory Rate Blood Pressure Pulse Oximetry Intake/Output Intake/Output: Intake & Output 01/22/20 01/23/20 01/24/20 01/25/20 23:59 23:59 23:59 23:59 Intake Total 1340 960 720 Balance 1340 960 720 Meds/Results Medications: Active Medications Generic Name Dose Route Start Last Admin Trade Name Freq PRN Reason Stop Dose Admin Acetaminophen 650 mg 01/19/20 19:42 01/22/20 05:36 Acetaminophen 325 Mg Tablet PO 650 mg Q4H PRN Administration Pain (Scale Score 1-3) Allopurinol 100 mg 01/20/20 08:00 01/25/20 09:32 Allopurinol 100 Mg Tablet PO 100 mg DAILY@0800 [facility] Administration Amiodarone HCl 400 mg 01/20/20 08:00 01/25/20 09:33 Amiodarone Hcl 200 Mg Tablet BY MOUTH 400 mg DAILY@0800 NAE Administration Apixaban 5 mg 01/19/20 21:20 01/25/20 09:35 Apixaban 5 Mg Tablet PO 5 mg BID NAE Administration Aspirin 81 mg 01/20/20 08:00 01/25/20 09:34 Aspirin 81 Mg Chewable Tablet PO 81 mg DAILY@0800 [facility] Administration Atorvastatin Calcium 80 mg 01/19/20 21:20 01/24/20 21:04 Atorvastatin 40 Mg Tablet PO 80 mg HS [facility] Administration Calcium Carbonate 200 mg 01/19/20 19:42 Calcium Carbonate (Tums) 500 Mg (200 Mg Elemental) PO QID PRN Indigestion Carvedilol 3.125 mg 01/19/20 21:25 01/25/20 09:35 Carvedilol 3.125 Mg Tablet PO 3.125 mg Q12HR NAE Administration Doxycycline Hyclate 100 mg 01/19/20 21:25 01/25/20 09:35 Doxycycline Hyclate 100 Mg Tablet PO 100 mg Q12HR NAE Administration Hydralazine HCl 50 mg 01/19/20 22:00 01/25/20 05:12 Hydralazine Hcl 50 Mg Tablet PO 50 mg Q8HR NAE Administration Loperamide HCl 2 mg 01/19/20 19:42 Loperamide Hcl 2 Mg Capsule PO Q4H PRN Diarrhea Melatonin 6 mg 01/19/20 21:25 01/24/20 21:03 Melatonin 3 Mg Tablet PO 6 mg HS NAE Administration Miconazole Nitrate 1 applic 01/19/20 22:00 01/25/20 05:12 Miconazole Nitrate 2% Cream 30 Gm Tube TOPICAL 1 applic Q8HR [facility] Administration Multivitamins Therapeutic 1 tablet 01/20/20 09:00 01/25/20 09:35 Multivitamins Therapeutic Tab (*Bkc) PO 1 tablet DAILY [facility] Administration Ondansetron HCl 4 mg 01/19/20 19:42 Ond
[2020-01-25] MEDS: MELATONIN 3 MG TABLET 6 MG PO (20:11)
[2020-01-25] MEDS: ATORVASTATIN 40 MG TABLET 80 MG PO (20:12)
[2020-01-25] MEDS: PANTOPRAZOLE 40 MG TABLET PO (20:14)
[2020-01-26] MEDS: MICONAZOLE NITRATE 2% CREAM 30 GM TUBE 1 APPLIC TOPICAL ×4 (05:29→20:32)
[2020-01-26] MEDS: ACETAMINOPHEN 325 MG TABLET 650 MG PO (05:32)
[2020-01-26] MEDS: hydrALAZINE HCL 50 MG TABLET PO ×3 (05:35→20:32)
[2020-01-26 06:00] VITALS: BP 152/70; PULSE 79; RESP 20; TEMP 36.2; O2SAT 96
[2020-01-26 10:39] VITALS: PULSE 79
[2020-01-26] MEDS: AMIODARONE HCL 200 MG TABLET 400 MG BY MOUTH (10:39)
[2020-01-26] MEDS: ASPIRIN 81 MG CHEWABLE TABLET PO (10:39)
[2020-01-26] MEDS: POTASSIUM CHLORIDE 20 MEQ TABLET.ER PO (10:39)
[2020-01-26] MEDS: allopurinoL 100 MG TABLET PO (10:39)
[2020-01-26 10:40] VITALS: PULSE 79
[2020-01-26] MEDS: carvediloL 3.125 MG TABLET PO ×2 (10:40→20:31)
[2020-01-26] MEDS: APIXABAN 5 MG TABLET PO ×2 (10:40→17:14)
[2020-01-26] MEDS: MULTIVITAMINS THERAPEUTIC TAB (*BKC) 1 TABLET PO (10:40)
[2020-01-26] MEDS: DOXYCYCLINE HYCLATE 100 MG TABLET PO ×2 (10:40→20:31)
[2020-01-26] MEDS: NEOMYCIN/POLYMYXIN/BACITRACIN OINTMENT 15 GM TUBE 1 APPLIC TOPICAL (10:41)
[2020-01-26 14:00] VITALS: BP 130/60; PULSE 85; RESP 20; TEMP 36.6; O2SAT 98
[2020-01-26 20:31] VITALS: PULSE 88
[2020-01-26] MEDS: MELATONIN 3 MG TABLET 6 MG PO (20:31)
[2020-01-26] MEDS: ATORVASTATIN 40 MG TABLET 80 MG PO (20:31)
[2020-01-26] MEDS: PANTOPRAZOLE 40 MG TABLET PO (20:31)
[2020-01-27] VITALS (9 sets, daily range): BP systolic 115–129; BP diastolic 64–74; PULSE 78–90; RESP 18–20; TEMP 36.6–36.9; O2SAT 96–99
[2020-01-27 05:23] LABS: Basophils Absolute Auto 0.1 K/mm3 (0.0-0.1); Basophils Percent Auto 1.2 % (0.2-1.2); Eosinophils Absolute Auto 0.4 K/mm3 (0-0.3); Eosinophils Percent Auto 5.4 % (0-4.4); Hematocrit 23.4 % (42.0-52.0); Hemoglobin 7.4 g/dL (14.0-18.0); Immature Granulocyte Absolute 0.05 K/mm3 (0.00-0.031); Immature Granulocyte Percent A 0.6 % (0-0.5); Lymphocytes Absolute Auto 1.59 K/mm3 (0.9-3.2); Lymphocytes Percent Auto 20.6 % (18.3-44.2); Mean Corpuscular HGB Conc 31.6 g/dl (32-36); Mean Corpuscular Hemoglobin 27.1 pg (26-34); Mean Corpuscular Volume 85.7 fl (80-100); Mean Platelet Volume 10.8 fl (7.4-10.4); Monocytes Absolute Auto 0.8 K/mm3 (0.1-0.6); Monocytes Percent Auto 9.7 % (2.6-8.5); Neutrophils Absolute Auto 4.8 K/mm3 (1.3-6.7); Neutrophils Percent Auto 62.5 % (45.5-73.1); Platelet Count Result 169 k/mm3 (150-375); Red Blood Count 2.73 M/mm3 (4.6-6.20); White Blood Count 7.7 K/mm3 (4.5-10.0)
[2020-01-27] MEDS: hydrALAZINE HCL 50 MG TABLET PO ×3 (05:24→22:18)
[2020-01-27] MEDS: MICONAZOLE NITRATE 2% CREAM 30 GM TUBE 1 APPLIC TOPICAL ×2 (05:25→14:35)
[2020-01-27 05:51] LABS: Anion Gap 7 mmol/L (8-16); Blood Urea Nitrogen 14 mg/dL (9-20); Calcium 8.6 mg/dL (8.4-10.2); Carbon Dioxide 30 mmol/L (22-30); Chloride 101 mmol/L (98-107); Estimated CRCL calculation 49 ml/min; Estimated Glomerular Filt Rate 50; Glucose 96 mg/dL (75-110); Sodium 138 mmol/L (137-145)
[2020-01-27] MEDS: AMIODARONE HCL 200 MG TABLET 400 MG BY MOUTH (08:50)
[2020-01-27] MEDS: APIXABAN 5 MG TABLET PO ×2 (08:51→17:35)
[2020-01-27] MEDS: ASPIRIN 81 MG CHEWABLE TABLET PO (08:51)
[2020-01-27] MEDS: DOXYCYCLINE HYCLATE 100 MG TABLET PO ×2 (08:51→19:56)
[2020-01-27] MEDS: carvediloL 3.125 MG TABLET PO ×2 (08:51→19:56)
[2020-01-27] MEDS: POTASSIUM CHLORIDE 20 MEQ TABLET.ER PO (08:51)
[2020-01-27] MEDS: allopurinoL 100 MG TABLET PO (08:51)
[2020-01-27] MEDS: NEOMYCIN/POLYMYXIN/BACITRACIN OINTMENT 15 GM TUBE 1 APPLIC TOPICAL (08:52)
[2020-01-27] MEDS: MULTIVITAMINS THERAPEUTIC TAB (*BKC) 1 TABLET PO (08:52)
--- NOTE | 2020-01-27 12:47 | WPDNEURORHBP ---
Subjective Date/time seen: 01/27/20 12:47 69 years old with critical illness related myopathy and action tremor Review of Systems Review of Systems: All systems reviewed & are unremarkable except as noted in HPI and below Functional Status Ambulation Ability Ability to Ambulate 10 Feet: Independent Ability to Ambulate 50 Feet With 2 Turns: Independent Ability to Ambulate 150 Feet: Independent Ambulation Assistive Devices: Walker, Wheeled Transfers Ability Ability to Transfer In/Out of Chair: Standby Assistance Exam Narrative: Exam Narrative: awake alert cooperative speech nor dysphasic no dysarthric cranial examination is normal examination revealed no drift except he has action tremor reflexes symmetrical plantars downgoing heart regular lungs clear abdomen soft Objective Data Vital Signs Vital Signs: Vital Signs - 24 hr 01/26/20 14:00 01/26/20 20:31 01/27/20 05:27 Temperature 36.6 C 36.6 C Pulse Rate 85 88 86 Pulse Rate [With Activity During Therapy Session] Respiratory Rate 20 20 Blood Pressure 130/60 129/74 Pulse Oximetry 98 Pulse Oximetry [With Activity During Therapy Session] 01/27/20 08:50 01/27/20 08:51 01/27/20 09:30 Temperature Pulse Rate 86 86 80 Pulse Rate [With Activity During Therapy Session] 88 Respiratory Rate Blood Pressure Pulse Oximetry 96 Pulse Oximetry [With Activity During Therapy Session] 99 Intake/Output Intake/Output: Intake & Output 01/24/20 01/25/20 01/26/20 01/27/20 23:59 23:59 23:59 23:59 Intake Total 720 720 240 Balance 720 720 240 Meds/Results Medications: Active Medications Generic Name Dose Route Start Last Admin Trade Name Eugenioq PRN Reason Stop Dose Admin Acetaminophen 650 mg 01/19/20 19:42 01/26/20 05:32 Acetaminophen 325 Mg Tablet PO 650 mg Q4H PRN Administration Pain (Scale Score 1-3) Allopurinol 100 mg 01/20/20 08:00 01/27/20 08:51 Allopurinol 100 Mg Tablet PO 100 mg DAILY@0800 [facility] Administration Amiodarone HCl 400 mg 01/20/20 08:00 01/27/20 08:50 Amiodarone Hcl 200 Mg Tablet BY MOUTH 400 mg DAILY@0800 [facility] Administration Apixaban 5 mg 01/19/20 21:20 01/27/20 08:51 Apixaban 5 Mg Tablet PO 5 mg BID NAE Administration Aspirin 81 mg 01/20/20 08:00 01/27/20 08:51 Aspirin 81 Mg Chewable Tablet PO 81 mg DAILY@0800 [facility] Administration Atorvastatin Calcium 80 mg 01/19/20 21:20 01/26/20 20:31 Atorvastatin 40 Mg Tablet PO 80 mg HS NAE Administration Calcium Carbonate 200 mg 01/19/20 19:42 Calcium Carbonate (Tums) 500 Mg (200 Mg Elemental) PO QID PRN Indigestion Carvedilol 3.125 mg 01/19/20 21:25 01/27/20 08:51 Carvedilol 3.125 Mg Tablet PO 3.125 mg Q12HR NAE Administration Doxycycline Hyclate 100 mg 01/19/20 21:25 01/27/20 08:51 Doxycycline Hyclate 100 Mg Tablet PO 100 mg Q12HR NAE Administration Hydralazine HCl 50 mg 01/19/20 22:00 01/27/20 05:24 Hydralazine Hcl 50 Mg Tablet PO 50 mg Q8HR NAE Administration Loperamide HCl 2 mg 01/19/20 19:42 Loperamide Hcl 2 Mg Capsule PO Q4H PRN Diarrhea Melatonin 6 mg 01/19/20 21:25 01/26/20 20:31 Melatonin 3 Mg Tablet PO 6 mg HS [facility] Administration Miconazole Nitrate 1 applic 01/19/20 22:00 01/27/20 05:25 Miconazole Nitrate 2% Cream 30 Gm Tube TOPICAL 1 applic Q8HR NAE Administration Multivitamins Therapeutic 1 tablet 01/20/20 09:00 01/27/20 08:52 Multivitamins Therapeutic Tab (*Bkc) PO 1 tablet DAILY NAE Administration Neomycin/Polymyxin/Bacitracin 1 applic 01/25/20 09:00 01/27/20 08:52 Neomycin/Polymyxin/Bacitracin Ointment 15 Gm Tube TOPICAL 1 applic QAM [facility] Administration Ondansetron HCl 4 mg 01/19/20 19:42 Ondansetron Inj 4 Mg/2 Ml Vial IV PUSH Q6H PRN Nausea And Vomiting Oxycodone HCl 5 mg 01/19/20 19:42 Oxycodone Hcl (*Crx) 5 Mg Tab Ir PO Q4H PRN Pain (Scale Score 4-
[2020-01-27] MEDS: ATORVASTATIN 40 MG TABLET 80 MG PO (19:55)
[2020-01-27] MEDS: MELATONIN 3 MG TABLET 6 MG PO (19:57)
[2020-01-27] MEDS: PROPRANOLOL HCL 20 MG TABLET PO (19:57)
[2020-01-27] MEDS: PANTOPRAZOLE 40 MG TABLET PO (20:02)
[2020-01-28] VITALS (10 sets, daily range): BP systolic 108–115; BP diastolic 52–61; PULSE 67–77; RESP 16–20; TEMP 36.6–36.8; O2SAT 96–99
[2020-01-28] MEDS: hydrALAZINE HCL 50 MG TABLET PO ×3 (05:11→21:33)
[2020-01-28] MEDS: POTASSIUM CHLORIDE 20 MEQ TABLET.ER PO (09:00)
[2020-01-28] MEDS: AMIODARONE HCL 200 MG TABLET 400 MG BY MOUTH (09:00)
[2020-01-28] MEDS: MULTIVITAMINS THERAPEUTIC TAB (*BKC) 1 TABLET PO (09:01)
[2020-01-28] MEDS: carvediloL 3.125 MG TABLET PO ×2 (09:01→21:35)
[2020-01-28] MEDS: ASPIRIN 81 MG CHEWABLE TABLET PO (09:01)
[2020-01-28] MEDS: APIXABAN 5 MG TABLET PO ×2 (09:01→17:05)
[2020-01-28] MEDS: DOXYCYCLINE HYCLATE 100 MG TABLET PO ×2 (09:01→21:33)
[2020-01-28] MEDS: allopurinoL 100 MG TABLET PO (09:01)
[2020-01-28] MEDS: NEOMYCIN/POLYMYXIN/BACITRACIN OINTMENT 15 GM TUBE 1 APPLIC TOPICAL (09:02)
[2020-01-28] MEDS: PROPRANOLOL HCL 20 MG TABLET PO ×2 (09:02→21:35)
[2020-01-28] MEDS: MICONAZOLE NITRATE 2% CREAM 30 GM TUBE 1 APPLIC TOPICAL ×2 (14:00→21:36)
[2020-01-28] MEDS: MELATONIN 3 MG TABLET 6 MG PO (21:33)
[2020-01-28] MEDS: ATORVASTATIN 40 MG TABLET 80 MG PO (21:35)
[2020-01-28] MEDS: PANTOPRAZOLE 40 MG TABLET PO (21:36)
[2020-01-28] MEDS: polyethylene glycoL 3350 17 GM POWD.PACK PO (21:38)
[2020-01-29] VITALS (7 sets, daily range): BP systolic 111–134; BP diastolic 55–63; PULSE 62–72; RESP 12–19; TEMP 36.4–37; O2SAT 97–100
[2020-01-29] MEDS: MICONAZOLE NITRATE 2% CREAM 30 GM TUBE 1 APPLIC TOPICAL ×3 (05:36→20:45)
[2020-01-29] MEDS: hydrALAZINE HCL 50 MG TABLET PO ×3 (05:36→20:45)
[2020-01-29] MEDS: allopurinoL 100 MG TABLET PO (07:54)
[2020-01-29] MEDS: APIXABAN 5 MG TABLET PO ×2 (07:55→17:14)
[2020-01-29] MEDS: carvediloL 3.125 MG TABLET PO ×2 (07:55→20:44)
[2020-01-29] MEDS: AMIODARONE HCL 200 MG TABLET 400 MG BY MOUTH (07:55)
[2020-01-29] MEDS: POTASSIUM CHLORIDE 20 MEQ TABLET.ER PO (07:55)
[2020-01-29] MEDS: ASPIRIN 81 MG CHEWABLE TABLET PO (07:55)
[2020-01-29] MEDS: DOXYCYCLINE HYCLATE 100 MG TABLET PO ×2 (07:56→20:44)
[2020-01-29] MEDS: PROPRANOLOL HCL 20 MG TABLET PO ×2 (07:56→20:45)
[2020-01-29] MEDS: NEOMYCIN/POLYMYXIN/BACITRACIN OINTMENT 15 GM TUBE 1 APPLIC TOPICAL (07:57)
[2020-01-29] MEDS: MULTIVITAMINS THERAPEUTIC TAB (*BKC) 1 TABLET PO (07:57)
--- NOTE | 2020-01-29 10:37 | WPDNEURORHBP ---
Subjective Date/time seen: 01/29/20 10:37 69 years old with critical illness related myopathy an action tremor reports today in decrease in the essential tremors has been involved in the physical therapy on a regular basis and has no specific complaints Review of Systems Review of Systems: All systems reviewed & are unremarkable except as noted in HPI and below Functional Status Ambulation Ability Ability to Ambulate 10 Feet: Independent Ability to Ambulate 50 Feet With 2 Turns: Independent Ability to Ambulate 150 Feet: Independent Ambulation Assistive Devices: Walker, Wheeled Transfers Ability Ability to Transfer In/Out of Chair: Standby Assistance Exam Narrative: Exam Narrative: on examination he is awake alert cooperative his speech nor dysphasic not dysarthric heart regular lungs clear abdomen soft neuro with right-sided essential or action tremors Objective Data Vital Signs Vital Signs: Vital Signs - 24 hr 01/28/20 14:00 01/28/20 14:02 01/28/20 20:00 Temperature 36.6 C Pulse Rate 68 77 67 Respiratory Rate 20 16 Blood Pressure 115/61 Pulse Oximetry 99 99 97 01/28/20 21:35 01/28/20 22:00 01/29/20 06:00 Temperature 36.8 C 36.4 C L Pulse Rate 67 67 66 Respiratory Rate 16 19 Blood Pressure 115/54 L 120/62 Pulse Oximetry 97 98 01/29/20 07:55 01/29/20 07:56 Temperature Pulse Rate 62 62 Respiratory Rate Blood Pressure Pulse Oximetry Intake/Output Intake/Output: Intake & Output 01/26/20 01/27/20 01/28/20 01/29/20 23:59 23:59 23:59 23:59 Intake Total 020 346 1015 480 Balance 883 664 8409 480 Meds/Results Medications: Active Medications Generic Name Dose Route Start Last Admin Trade Name Freq PRN Reason Stop Dose Admin Acetaminophen 650 mg 01/19/20 19:42 01/26/20 05:32 Acetaminophen 325 Mg Tablet PO 650 mg Q4H PRN Administration Pain (Scale Score 1-3) Allopurinol 100 mg 01/20/20 08:00 01/29/20 07:54 Allopurinol 100 Mg Tablet PO 100 mg DAILY@0800 [facility] Administration Amiodarone HCl 400 mg 01/20/20 08:00 01/29/20 07:55 Amiodarone Hcl 200 Mg Tablet BY MOUTH 400 mg DAILY@0800 [facility] Administration Apixaban 5 mg 01/19/20 21:20 01/29/20 07:55 Apixaban 5 Mg Tablet PO 5 mg BID NAE Administration Aspirin 81 mg 01/20/20 08:00 01/29/20 07:55 Aspirin 81 Mg Chewable Tablet PO 81 mg DAILY@0800 [facility] Administration Atorvastatin Calcium 80 mg 01/19/20 21:20 01/28/20 21:35 Atorvastatin 40 Mg Tablet PO 80 mg HS [facility] Administration Calcium Carbonate 200 mg 01/19/20 19:42 Calcium Carbonate (Tums) 500 Mg (200 Mg Elemental) PO QID PRN Indigestion Carvedilol 3.125 mg 01/19/20 21:25 01/29/20 07:55 Carvedilol 3.125 Mg Tablet PO 3.125 mg Q12HR [facility] Administration Doxycycline Hyclate 100 mg 01/29/20 09:00 01/29/20 07:56 Doxycycline Hyclate 100 Mg Tablet PO 100 mg Q12HR [facility] Administration Hydralazine HCl 50 mg 01/19/20 22:00 01/29/20 05:36 Hydralazine Hcl 50 Mg Tablet PO 50 mg Q8HR [facility] Administration Loperamide HCl 2 mg 01/19/20 19:42 Loperamide Hcl 2 Mg Capsule PO Q4H PRN Diarrhea Melatonin 6 mg 01/19/20 21:25 01/28/20 21:33 Melatonin 3 Mg Tablet PO 6 mg HS [facility] Administration Miconazole Nitrate 1 applic 01/29/20 06:00 01/29/20 05:36 Miconazole Nitrate 2% Cream 30 Gm Tube TOPICAL 1 applic Q8HR [facility] Administration Multivitamins Therapeutic 1 tablet 01/20/20 09:00 01/29/20 07:57 Multivitamins Therapeutic Tab (*Bkc) PO 1 tablet DAILY [facility] Administration Neomycin/Polymyxin/Bacitracin 1 applic 01/25/20 09:00 01/29/20 07:57 Neomycin/Polymyxin/Bacitracin Ointment 15 Gm Tube TOPICAL 1 applic QAM [facility] Administration Ondansetron HCl 4 mg 01/19/20 19:42 Ondansetron Inj 4 Mg/2 Ml Vial IV PUSH Q6H PRN Nausea And Vomiting Oxycodone HCl 5 mg 01/19/20 19:42 Oxycodone Hcl (*Crx) 5 Mg Tab Ir PO Q4H PRN P
--- NOTE | 2020-01-29 13:08 | PCDIET ---
Nutrition Follow-Up Complete: Nutrition Diagnosis: Predicted suboptimal oral intake related to critical illness as evidenced by MD order for Ensure supplements. Nutrition Goal: Patient to consume 75% of meals/supplements or greater. Goal met. Patient consuming 75-100% of meals on regular diet with Ensure Enlive BID. Patient would like to cut back on Enlive to 1x daily. This is acceptable, given intakes have been adequate. Last recorded weight is 92 kg. Recommend obtaining new weight. Bowel Motility: +BM today, per nursing flowsheet. Labs Reviewed: Hgb (7.7), Hct (24.2), K (3.2), Ca (8.2) Meds Noted: Lipitor, Coreg, Vibramycin, Hydralazine, MVI, Protonix, Miralax, KCl, Seroquel Additional Notes: Documented maceration to buttocks. Will continue to monitor with same goal. Nutrition Monitoring and Evaluation: Follow up in 7 days.
[2020-01-29] MEDS: ATORVASTATIN 40 MG TABLET 80 MG PO (20:44)
[2020-01-29] MEDS: MELATONIN 3 MG TABLET 6 MG PO (20:44)
[2020-01-29] MEDS: PANTOPRAZOLE 40 MG TABLET PO (20:45)
[2020-01-30] VITALS (8 sets, daily range): BP systolic 121–144; BP diastolic 53–73; PULSE 63–89; RESP 14–20; TEMP 36.6–37.5; O2SAT 97–100
[2020-01-30] MEDS: hydrALAZINE HCL 50 MG TABLET PO ×3 (05:57→23:04)
[2020-01-30] MEDS: MICONAZOLE NITRATE 2% CREAM 30 GM TUBE 1 APPLIC TOPICAL ×3 (06:00→23:05)
[2020-01-30] MEDS: DOXYCYCLINE HYCLATE 100 MG TABLET PO ×2 (09:42→21:40)
[2020-01-30] MEDS: POTASSIUM CHLORIDE 20 MEQ TABLET.ER PO (09:42)
[2020-01-30] MEDS: allopurinoL 100 MG TABLET PO (09:43)
[2020-01-30] MEDS: AMIODARONE HCL 200 MG TABLET 400 MG BY MOUTH (09:43)
[2020-01-30] MEDS: ASPIRIN 81 MG CHEWABLE TABLET PO (09:43)
[2020-01-30] MEDS: APIXABAN 5 MG TABLET PO ×2 (09:43→17:23)
[2020-01-30] MEDS: MULTIVITAMINS THERAPEUTIC TAB (*BKC) 1 TABLET PO (09:43)
[2020-01-30] MEDS: carvediloL 3.125 MG TABLET PO ×2 (09:43→21:39)
[2020-01-30] MEDS: NEOMYCIN/POLYMYXIN/BACITRACIN OINTMENT 15 GM TUBE 1 APPLIC TOPICAL (09:43)
[2020-01-30] MEDS: PROPRANOLOL HCL 20 MG TABLET PO (09:44)
--- NOTE | 2020-01-30 11:24 | WPDNEURORHBP ---
Subjective Date/time seen: 01/30/20 11:24 69 years old has been admitted to the rehab floor of [facility] with the diagnosis of critical illness related myopathy and action tremor of rather long duration has been involved in the physical therapy and occupational therapy on a very regular basis has no specific complaints he was started on propanolol lower doses to control the tremors and tolerating the medicine fairly well he WBCs are down to 7.7 with hemoglobin 7.4 and GFR of 50 with creatinine of 1.40 we will check the CBC and BMP 1 more time before he leaves because of the low hemoglobin Functional Status Ambulation Ability Ability to Ambulate 10 Feet: Independent Ability to Ambulate 50 Feet With 2 Turns: Independent Ability to Ambulate 150 Feet: Independent Ambulation Assistive Devices: Walker, Wheeled Transfers Ability Ability to Transfer In/Out of Chair: Independent Exam Narrative: Exam Narrative: on examination he continues to be awake alert very cooperative his speech nor dysphasic no dysarthric not dysphonic heart regular murmur lungs clear no crepitation abdomen soft nontender and neuro examination unchanged with some improvement in the action tremor Objective Data Vital Signs Vital Signs: Vital Signs - 24 hr 01/29/20 14:00 01/29/20 20:43 01/29/20 20:44 Temperature 36.5 C 37.0 C Pulse Rate 70 65 72 Respiratory Rate 18 12 Blood Pressure 111/55 L 134/63 Pulse Oximetry 97 100 01/29/20 20:45 01/30/20 05:56 01/30/20 09:43 Temperature 37.5 C Pulse Rate 72 63 63 Respiratory Rate 14 Blood Pressure 121/73 Pulse Oximetry 100 01/30/20 09:44 Temperature Pulse Rate 63 Respiratory Rate Blood Pressure Pulse Oximetry Intake/Output Intake/Output: Intake & Output 01/27/20 01/28/20 01/29/20 01/30/20 23:59 23:59 23:59 23:59 Intake Total 840 1310 1080 360 Balance 840 1310 1080 360 Meds/Results Medications: Active Medications Generic Name Dose Route Start Last Admin Trade Name Freq PRN Reason Stop Dose Admin Acetaminophen 650 mg 01/19/20 19:42 01/26/20 05:32 Acetaminophen 325 Mg Tablet PO 650 mg Q4H PRN Administration Pain (Scale Score 1-3) Allopurinol 100 mg 01/20/20 08:00 01/30/20 09:43 Allopurinol 100 Mg Tablet PO 100 mg DAILY@0800 NAE Administration Amiodarone HCl 400 mg 01/20/20 08:00 01/30/20 09:43 Amiodarone Hcl 200 Mg Tablet BY MOUTH 400 mg DAILY@0800 NAE Administration Apixaban 5 mg 01/19/20 21:20 01/30/20 09:43 Apixaban 5 Mg Tablet PO 5 mg BID NAE Administration Aspirin 81 mg 01/20/20 08:00 01/30/20 09:43 Aspirin 81 Mg Chewable Tablet PO 81 mg DAILY@0800 NAE Administration Atorvastatin Calcium 80 mg 01/19/20 21:20 01/29/20 20:44 Atorvastatin 40 Mg Tablet PO 80 mg HS NAE Administration Calcium Carbonate 200 mg 01/19/20 19:42 Calcium Carbonate (Tums) 500 Mg (200 Mg Elemental) PO QID PRN Indigestion Carvedilol 3.125 mg 01/19/20 21:25 01/30/20 09:43 Carvedilol 3.125 Mg Tablet PO 3.125 mg Q12HR NAE Administration Doxycycline Hyclate 100 mg 01/29/20 09:00 01/30/20 09:42 Doxycycline Hyclate 100 Mg Tablet PO 100 mg Q12HR NAE Administration Hydralazine HCl 50 mg 01/19/20 22:00 01/30/20 05:57 Hydralazine Hcl 50 Mg Tablet PO 50 mg Q8HR NAE Administration Loperamide HCl 2 mg 01/19/20 19:42 Loperamide Hcl 2 Mg Capsule PO Q4H PRN Diarrhea Melatonin 6 mg 01/19/20 21:25 01/29/20 20:44 Melatonin 3 Mg Tablet PO 6 mg HS NAE Administration Miconazole Nitrate 1 applic 01/29/20 06:00 01/30/20 06:00 Miconazole Nitrate 2% Cream 30 Gm Tube TOPICAL 1 applic Q8HR NAE Administration Multivitamins Therapeutic 1 tablet 01/20/20 09:00 01/30/20 09:43 Multivitamins Therapeutic Tab (*Bkc) PO 1 tablet DAILY NAE Administration Neomycin/Polymyxin/Bacitracin 1 applic 01/25/20 09:00 01/30/20 09:43 Neomycin/Polymyxin/Bacitr
[2020-01-30 12:39] LABS: Basophils Absolute Auto 0.1 K/mm3 (0.0-0.1); Basophils Percent Auto 1.4 % (0.2-1.2); Eosinophils Absolute Auto 0.3 K/mm3 (0-0.3); Eosinophils Percent Auto 3.4 % (0-4.4); Hematocrit 26.7 % (42.0-52.0); Hemoglobin 8.5 g/dL (14.0-18.0); Immature Granulocyte Absolute 0.06 K/mm3 (0.00-0.031); Immature Granulocyte Percent A 0.7 % (0-0.5); Lymphocytes Absolute Auto 2.11 K/mm3 (0.9-3.2); Lymphocytes Percent Auto 23.3 % (18.3-44.2); Mean Corpuscular HGB Conc 31.8 g/dl (32-36); Mean Corpuscular Hemoglobin 27.6 pg (26-34); Mean Corpuscular Volume 86.7 fl (80-100); Mean Platelet Volume 11.1 fl (7.4-10.4); Monocytes Percent Auto 11.4 % (2.6-8.5); Neutrophils Absolute Auto 5.4 K/mm3 (1.3-6.7); Neutrophils Percent Auto 59.8 % (45.5-73.1); Platelet Count Result 256 k/mm3 (150-375); Red Blood Count 3.08 M/mm3 (4.6-6.20); Red Cell Distribution Width 16.8 % (11.5-14.5); White Blood Count 9.1 K/mm3 (4.5-10.0)
[2020-01-30 12:52] LABS: Anion Gap 10 mmol/L (8-16); Blood Urea Nitrogen 19 mg/dL (9-20); Calcium 8.7 mg/dL (8.4-10.2); Carbon Dioxide 24 mmol/L (22-30); Chloride 102 mmol/L (98-107); Estimated CRCL calculation 46 ml/min; Estimated Glomerular Filt Rate 46; Glucose 103 mg/dL (75-110); Potassium 4.6 mmol/L (3.4-5.0); Sodium 136 mmol/L (137-145)
[2020-01-30] MEDS: ATORVASTATIN 40 MG TABLET 80 MG PO (21:39)
[2020-01-30] MEDS: MELATONIN 3 MG TABLET 6 MG PO (21:40)
[2020-01-30] MEDS: PANTOPRAZOLE 40 MG TABLET PO (21:41)
[2020-01-30] MEDS: PROPRANOLOL HCL 10 MG TABLET 30 MG PO (21:42)
[2020-01-31] MEDS: hydrALAZINE HCL 50 MG TABLET PO ×2 (05:57→13:17)
[2020-01-31] MEDS: MICONAZOLE NITRATE 2% CREAM 30 GM TUBE 1 APPLIC TOPICAL ×2 (05:58→13:17)
[2020-01-31 06:00] VITALS: BP 132/60; PULSE 63; RESP 20; TEMP 37; O2SAT 98
[2020-01-31 08:37] VITALS: PULSE 66
[2020-01-31] MEDS: AMIODARONE HCL 200 MG TABLET 400 MG BY MOUTH (08:37)
[2020-01-31] MEDS: APIXABAN 5 MG TABLET PO (08:37)
[2020-01-31] MEDS: DOXYCYCLINE HYCLATE 100 MG TABLET PO (08:37)
[2020-01-31] MEDS: PROPRANOLOL HCL 10 MG TABLET 30 MG PO (08:37)
[2020-01-31] MEDS: ASPIRIN 81 MG CHEWABLE TABLET PO (08:37)
[2020-01-31] MEDS: carvediloL 3.125 MG TABLET PO (08:37)
[2020-01-31] MEDS: allopurinoL 100 MG TABLET PO (08:38)
[2020-01-31] MEDS: NEOMYCIN/POLYMYXIN/BACITRACIN OINTMENT 15 GM TUBE 1 APPLIC TOPICAL (08:38)
[2020-01-31] MEDS: MULTIVITAMINS THERAPEUTIC TAB (*BKC) 1 TABLET PO (08:38)
[2020-01-31] MEDS: POTASSIUM CHLORIDE 20 MEQ TABLET.ER PO (08:38)
--- NOTE | 2020-01-31 12:16 | WPDNEURORHBP ---
Subjective Date/time seen: 01/31/20 12:16 69 years old with critical illness related myopathy, action tremor, has been receiving propanolol and has noted definite improvement in the tremor Review of Systems Review of Systems: All systems reviewed & are unremarkable except as noted in HPI and below Functional Status Ambulation Ability Ability to Ambulate 10 Feet: Independent Ability to Ambulate 50 Feet With 2 Turns: Independent Ability to Ambulate 150 Feet: Independent Ambulation Assistive Devices: Walker, Wheeled Transfers Ability Ability to Transfer In/Out of Chair: Independent Exam Narrative: Exam Narrative: on examination today awake alert ,his speech not dysphasic not dysarthric ,heart regular, lungs clear no rhonchi or crepitations,abdomen soft nontender normal bowel sounds, neurologically has normal mental status normal speech [id number]-finger tremors are less,reflexes symmetrical but sluggish,strength decreased proximally more than distally Objective Data Vital Signs Vital Signs: Vital Signs - 24 hr 01/30/20 13:55 01/30/20 14:00 01/30/20 21:39 Temperature 36.6 C Pulse Rate 72 67 Pulse Rate [With Activity During Therapy Session] 89 Respiratory Rate 18 Blood Pressure 121/70 Pulse Oximetry 98 Pulse Oximetry [With Activity During Therapy Session] 98 01/30/20 21:42 01/30/20 22:00 01/31/20 06:00 Temperature 36.8 C 37.0 C Pulse Rate 67 67 63 Pulse Rate [With Activity During Therapy Session] Respiratory Rate 20 20 Blood Pressure 144/53 H 132/60 Pulse Oximetry 97 98 Pulse Oximetry [With Activity During Therapy Session] 01/31/20 08:37 Temperature Pulse Rate 66 Pulse Rate [With Activity During Therapy Session] Respiratory Rate Blood Pressure Pulse Oximetry Pulse Oximetry [With Activity During Therapy Session] Intake/Output Intake/Output: Intake & Output 01/28/20 01/29/20 01/30/20 01/31/20 23:59 23:59 23:59 23:59 Intake Total 1310 1080 1320 360 Balance 1310 1080 1320 360 Meds/Results Medications: Active Medications Generic Name Dose Route Start Last Admin Trade Name Freq PRN Reason Stop Dose Admin Acetaminophen 650 mg 01/19/20 19:42 01/26/20 05:32 Acetaminophen 325 Mg Tablet PO 650 mg Q4H PRN Administration Pain (Scale Score 1-3) Allopurinol 100 mg 01/20/20 08:00 01/31/20 08:38 Allopurinol 100 Mg Tablet PO 100 mg DAILY@0800 [facility] Administration Amiodarone HCl 400 mg 01/20/20 08:00 01/31/20 08:37 Amiodarone Hcl 200 Mg Tablet BY MOUTH 400 mg DAILY@0800 NAE Administration Apixaban 5 mg 01/19/20 21:20 01/31/20 08:37 Apixaban 5 Mg Tablet PO 5 mg BID NAE Administration Aspirin 81 mg 01/20/20 08:00 01/31/20 08:37 Aspirin 81 Mg Chewable Tablet PO 81 mg DAILY@0800 [facility] Administration Atorvastatin Calcium 80 mg 01/19/20 21:20 01/30/20 21:39 Atorvastatin 40 Mg Tablet PO 80 mg HS NAE Administration Calcium Carbonate 200 mg 01/19/20 19:42 Calcium Carbonate (Tums) 500 Mg (200 Mg Elemental) PO QID PRN Indigestion Carvedilol 3.125 mg 01/19/20 21:25 01/31/20 08:37 Carvedilol 3.125 Mg Tablet PO 3.125 mg Q12HR NAE Administration Doxycycline Hyclate 100 mg 01/29/20 09:00 01/31/20 08:37 Doxycycline Hyclate 100 Mg Tablet PO 100 mg Q12HR NAE Administration Hydralazine HCl 50 mg 01/19/20 22:00 01/31/20 05:57 Hydralazine Hcl 50 Mg Tablet PO 50 mg Q8HR NAE Administration Loperamide HCl 2 mg 01/19/20 19:42 Loperamide Hcl 2 Mg Capsule PO Q4H PRN Diarrhea Melatonin 6 mg 01/19/20 21:25 01/30/20 21:40 Melatonin 3 Mg Tablet PO 6 mg HS [facility] Administration Miconazole Nitrate 1 applic 01/29/20 06:00 01/31/20 05:58 Miconazole Nitrate 2% Cream 30 Gm Tube TOPICAL 1 applic Q8HR [facility] Administration Multivitamins Therapeutic 1 tablet 01/20/20 09:00 01/31/20 08:38 Multivitamins Therapeutic Tab (*Bkc) PO 1 tablet DAILY [facility]
--- NOTE | 2020-02-02 12:42 | PM.DS ---
DS: Admitting Diagnosis Admitting Diagnosis Admitting Diagnosis: Critical illness myopathyADMISSION FUNCTION 69 years old right-handed male admitted to the acute rehab of [facility] with the primary rehab impairment category of neurological condition and etiological diagnosis of critical illness related myopathy in addition to the history of 1. By prosthetic aortic valve 2. Thoracic aortic aneurysm 3. Atrial fibrillation 4. Hypertension and number rather stormy course requiring the IV antibiotics intubated tricky also and anticoagulation therapy because of development of atrial fibrillation during the hospitalization at other institution. At the time of admission here his evaluation revealed that he was Eating independent Oral Care set up Toileting Hygiene dependent Shower/Bathing substantial Upper Body Dressing partial Lower Body Dressing substantial Donning/[place] Footwear substantial Rolling Left and Right unable Sit to Lying unable Lying to Sitting partial assist Sit to Stand partial nurse's assistant Bed to Chair Transfers partial nurse's assistant Toilet Transfers partial nurse's assistant Car Transfers partial assistance Walking 10' partial assistance Walking 50' with Two Turns unable Walking 150' unable Curb or Step partial assisted 4 Steps partial nurse's assistant 12 Steps unable Picking Up Object partial assistance [Wheelchair Mobility 50'] supervision [Wheelchair Mobility 150'] unable GOALS: Eating [INDEPENDENT] Oral Care [INDEPENDENT] Toileting Hygiene [INDEPENDENT] Shower/Bathing [INDEPENDENT] Upper Body Dressing [INDEPENDENT] Lower Body Dressing [INDEPENDENT] Donning/[place] Footwear [INDEPENDENT] Rolling Left and Right [INDEPENDENT] Sit to Lying [INDEPENDENT] Lying to Sitting [INDEPENDENT] Sit to Stand [INDEPENDENT] Bed to Chair Transfers [INDEPENDENT] Toilet Transfers [INDEPENDENT] Car Transfers [INDEPENDENT] Walking 10' [INDEPENDENT] Walking 50' with Two Turns [INDEPENDENT] Walking 150' [INDEPENDENT] Curb or Step supervision 4 Steps [INDEPENDENT] 12 Steps unable Picking Up Object [INDEPENDENT] [Wheelchair Mobility 50'] set up [Wheelchair Mobility 150'] unable DISCHARGE PERFORMANCE: Eating [INDEPENDENT] Oral Care [INDEPENDENT] Toileting Hygiene [INDEPENDENT] Shower/Bathing [INDEPENDENT] Upper Body Dressing [INDEPENDENT] Lower Body Dressing [INDEPENDENT] Donning/[place] Footwear [INDEPENDENT] Rolling Left and Right [INDEPENDENT] Sit to Lying [INDEPENDENT] Lying to Sitting [INDEPENDENT] Sit to Stand [INDEPENDENT] Bed to Chair Transfers [INDEPENDENT] Toilet Transfers [INDEPENDENT] Car Transfers [INDEPENDENT] Walking 10' [INDEPENDENT] Walking 50' with Two Turns [INDEPENDENT] Walking 150' [INDEPENDENT] Curb or Step supervision 4 Steps [INDEPENDENT] 12 Steps [INDEPENDENT] Picking Up Object [INDEPENDENT] [Wheelchair Mobility 50'] [INDEPENDENT] [Wheelchair Mobility 150'] [INDEPENDENT] during the entire hospitalized patient had no falls or injuries he was discharged to his home with outpatient therapy and his condition significantly improved DS: Summary Time Spent with Patient Time attestation: Total time spent providing and/or coordinating discharge services: Discharge Plan Discharge Discharging Clinician: David Victoria Patient Disposition: Home, Self-Care Activity: may shower, no driving and as tolerated Diet: regular Patient Instructions: Antibiotic Form, Apixaban (By mouth), Pain Management in Older Adults (DC), Weight Management (ED), Safe Use of Anticoagulants (DC) Stand Alone Forms: General Discharge Information Follow-up/Referrals: PCP [Other] (Follow-up with primary care physician upon discharge from [facility]/Rehab for general health maintenance and well being.) Discharge Medications: New Triple Antibiotic 3.5mg-400 unit- 5,000 unit/gram Ointment 1 applic topical QAM Qty: 1 RF: 0 propranolol 20 mg Tablet 20 mg PO Q12HR Qty: 60 RF: 0 Continued multivitamin Ta
== END 2020-01-31 14:15 | disposition home or self-care (01) | DRG 949 ==
PROVIDERS: Admitting Provider Psychiatry & Neurology Neurology; Visit Provider Psychiatry & Neurology Neurology
DX: Z48.812 Encounter for surgical aftercare following surgery on the circulatory system (principal); I33.0 Acute and subacute infective endocarditis; I50.21 Acute systolic (congestive) heart failure; G72.81 Critical illness myopathy; E78.5 Hyperlipidemia, unspecified; G47.00 Insomnia, unspecified; G25.2 Other specified forms of tremor; I48.91 Unspecified atrial fibrillation; I35.1 Nonrheumatic aortic (valve) insufficiency; I37.8 Other nonrheumatic pulmonary valve disorders; I71.2 Thoracic aortic aneurysm, without rupture; I11.0 Hypertensive heart disease with heart failure; M10.9 Gout, unspecified; Z95.2 Presence of prosthetic heart valve
CPT/HCPCS: 36415; 71045; 80048; 85025; 92522; 93306; 97110; 97116; 97163; 97166; 97530; 97535; 97542; A9270; J0696; J3370